=== PATIENT | male | born 1980 | race Caucasian/White ===

== ENCOUNTER 2016-10-05 07:38 | Day surgery (SDC) | payer BC ==
[~2016-10-05] VITALS: Ht 175.3 cm; Wt 154.8 kg
[~2016-10-05 07:38] MED LIST: HYDROCHLOROTHIA25 MG PO; LEVOTHYROXINE50 MCG PO; LISINOPRIL10 MG PO
--- NOTE | 2016-10-05 09:29 | Provider's Discharge Care Plan ---
Problem, Goal, Plan Problem List 1. S/P colonoscopy Goals: Screening Instructions: Follow up as directed, Take meds as directed
--- NOTE | 2016-10-05 09:29 | Provider's Discharge Care Plan ---
Problem, Goal, Plan Problem List 1. S/P colonoscopy Goals: Screening Instructions: Follow up as directed, Take meds as directed
[2016-10-05 10:48] VITALS: BP 170/92
--- NOTE | 2016-10-05 10:58 | OPERATIVE REPORT ---
DATE OF SURGERY: 10/05/2016 SURGEON: Rupert Alonzo III, MD ATHLETIC INSTRUCTOR: None. PREOPERATIVE DIAGNOSIS: 1. History of diverticulitis POSTOPERATIVE DIAGNOSIS: 1. Probable chronic diverticulitis PROCEDURE PERFORMED: 1. Colonoscopy with Rosa Isela ink injection of distal sigmoid ANESTHESIA: TIVA. INDICATIONS: This 35-year-old male in 12/2015 was diagnosed with diverticulitis, abdominal pain, occasional bouts of left lower quadrant abdominal pain. SURGICAL FINDINGS: The patient was noted to have some thickening of the distal sigmoid, but no gross evidence of diverticular process. The cecum, ascending, transverse, descending colon appeared grossly normal, as did the rectal vault. SURGICAL TECHNIQUE: The patient was brought to the operating room and placed in the left lateral decubitus position, where he was administered TIVA and monitored closely by anesthesia. After proper anesthesia had taken effect, a digital rectal examination revealed no masses or stenosis. This was followed by the passage of a fiberoptic video flexible Olympus colonoscope which, without difficulty, negotiated to the cecum. The cecum was identified by anatomical landmarks and anterior abdominal wall ballottement. On withdrawing the scope, the aforementioned findings were noted. There was an area of the distal sigmoid that appeared to be thickened and perhaps minimally hyperemic, but the remaining colon appeared grossly normal. There was no gross evidence of diverticular process. The scope was withdrawn, retroflexed, good view of the rectal vault obtained. No other pathology identified. The scope was completely withdrawn. The patient tolerated the procedure well and was transferred to the recovery room in stable condition. There were no intraoperative or anesthetic complications.
== END 2016-10-05 11:14 | disposition home or self-care (01) ==
LOC: SCU SRH 07:38 → OR SRH 07:38 → SCU SRH 07:41 → OR SRH 09:00
PROVIDERS: Specialist
PROC: 3E0H8GC Introduction of Other Therapeutic Substance into Lower GI, Via Natural or Artificial Opening Endoscopic (ICD-10-PCS; principal; 2016-10-05 09:00)
DX: K57.30 Diverticulosis of large intestine without perforation or abscess without bleeding (principal); I10 Essential (primary) hypertension; E66.01 Morbid (severe) obesity due to excess calories; Z68.43 Body mass index [BMI] 50.0-59.9, adult
CPT/HCPCS: 29229; 29240; 50004; 60001; 83191; 83222; 83526

== ENCOUNTER 2016-10-09 07:22 | Outpatient (CLI) | payer BC ==
--- NOTE | 2016-10-09 09:33 | DIAGNOSTIC IMAGING REPORT ---
PROCEDURE: XR ABDOMEN 1 VIEW UPRIGHT INDICATION: ABDOMINAL PAIN TECHNIQUE: AP upright view (three images). COMPARISON: None. FINDINGS: Bowel pattern is normal. Soft tissues and osseous structures are normal. No evidence of free air. IMPRESSION: 1. Negative abdomen. 2. Findings discussed with Dr. Alonzo.
== END 2016-10-09 23:00 ==
LOC: XR SRH 07:22
DX: R10.9 Unspecified abdominal pain (principal)
CPT/HCPCS: 90074; 95059